=== PATIENT | male | born 1950 | race Caucasian/White ===

== ENCOUNTER 2017-04-15 08:27 | Inpatient (IN) | payer OTHER, MEDICARE ==
[~2017-04-15] VITALS: Ht 172.7 cm; Wt 140.2 kg
[2017-04-15 08:15] VITALS: O2SAT 99
[2017-04-15] MEDS ORDERED: ceFAZolin 2 GM PREMIX 50 ML ONE (08:39)
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
[2017-04-15 08:56] LABS: BASOPHIL # 0.1 TH/MM3 (0-0.2); BASOPHIL % 0.5 % (0.0-2.0); EOSINOPHIL # 0.2 TH/MM3 (0-0.4); EOSINOPHIL % 1.4 % (0.0-4.0); HEMATOCRIT 47.9 % (39.0-51.0); HEMO FLAGS DIFF FINAL; LYMPH % 26.2 % (9.0-44.0); LYMPHOCYTE # 3.6 TH/MM3 (1.0-4.8); MEAN CELL VOLUME 97.3 FL (80.0-100.0); MEAN CORPUSCULAR HEMOGLOBIN 32.4 PG (27.0-34.0); MEAN CORPUSCULAR HGB CONC 33.2 % (32.0-36.0); MONO % 6.2 % (0.0-8.0); NEUT % 65.7 % (16.0-70.0); PLATELET COUNT 208 TH/MM3 (150-450); RED BLOOD COUNT 4.92 MIL/MM3 (4.50-5.90); RED CELL DISTRIBUTION WIDTH 13.8 % (11.6-17.2); WHITE BLOOD COUNT 13.6 TH/MM3 (4.0-11.0)
[2017-04-15 09:01] LABS: I-STAT POTASSIUM 4.9 MMOL/L (3.5-4.9)
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
[2017-04-15 09:06] LABS: INTERNATIONAL NORMALIZED RATIO 1.1 RATIO; PROTHROMBIN TIME - PATIENT 12.3 SEC (9.8-11.6)
[2017-04-15 09:08] LABS: APTT (PATIENT) 39.7 SEC (24.3-30.1)
[2017-04-15] MEDS ORDERED: IOHEXOL 350 MG/ML 10 ML VIAL (for RAD DIAG) IV ONE (09:08)
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
[2017-04-15] MEDS ORDERED: LIDOCAINE 2%/EPINEPHrine 1:100,000 50ML MDV ONE (09:29)
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
[2017-04-15] MEDS ORDERED: ONDANSETRON HCL 4 MG/2 ML VIAL IV PRN (10:15)
[2017-04-15] MEDS ORDERED: MISCELLANEOUS NURSING INFORMATION XX SCH (10:15)
[2017-04-15] MEDS ORDERED: CHLORHEXIDINE GLUCONATE 2 % 1 PACK (2 CLOTHS) TOP PRN (10:15)
[2017-04-15] MEDS ORDERED: ENALAPRILAT 1.25 MG/ML VIAL IV PRN (10:15)
[2017-04-15] MEDS ORDERED: MAGNESIUM HYDROXIDE SUSP 30 ML CUP PO PRN (10:15)
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
[2017-04-15] MEDS ORDERED: LACTATED RINGER'S 1000 ML INJ 1,000 ML IV ONE (10:30)
[2017-04-15 11:54] VITALS: O2SAT 92
[2017-04-15 11:55] VITALS: BP 111/58; PULSE 91; RESP 23; TEMP 98; O2SAT 92
[2017-04-15] MEDS: DOCUSATE SODIUM 100 MG CAP PO SCH ×2 (12:01→21:06)
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
[2017-04-15 13:00] VITALS: BP 102/56; PULSE 99; RESP 20; TEMP 97.3; O2SAT 97
[2017-04-15] MEDS ORDERED: MAGN400S PO (15:06)
[2017-04-15] MEDS ORDERED: DOCU1CAP39 PO (15:06)
[2017-04-15] MEDS ORDERED: DEXTROSE 50% IN WATER 50 ML VIAL(D50) IV PUSH PRN (15:15)
[2017-04-15] MEDS ORDERED: GLUCAGON 1 MG/ML VIAL OTHER PRN (15:15)
[2017-04-15] MEDS: METHOCARBAMOL 500 MG TAB PO SCH ×2 (15:56→21:06)
[2017-04-15 16:00] VITALS: BP 122/69; PULSE 84; RESP 18; TEMP 98.6; O2SAT 94
[2017-04-15] MEDS ORDERED: LIDOCAINE HCL 2% 20 ML VIAL OTHER ONE (16:00)
[2017-04-15] MEDS: INSULIN NovoLIN REGULAR SUPPLEMENTAL SCALE SQ SCH ×2 (16:00→21:00)
[2017-04-15] MEDS ORDERED: LIDOCAINE HCL 2% 50 ML VIAL OTHER ONE (16:00)
[2017-04-15] MEDS: ACETAMINOPHEN 1000 MG/100 ML VIAL IV SCH ×2 (16:43→21:06)
--- NOTE | 2017-04-15 17:03 | HHI.PR ---
Immediate Post Op Note Procedure Date: Apr 15, 2017 Pre Op Diagnosis: complex right ear laceration 4 cm scalp injury Post Op Diagnosis: ana Surgeon: Eugene Leonardo Pecan Cleaner(s): pt's nurse rubén Procedure: closure of complex right ear stellate laceration (behind the ear) debridement/dressing of wound scalp Complications: none Specimen(s) removed: none Estimated blood loss: minimal Anesthesia: Local (2% lidocaine approx 6cc) Drains: None Patient Condition: Good Date/Time of Procedure: SEE SURGICAL CARE RECORD Eugene Leonardo DMD Apr 15, 2017 17:03
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
[2017-04-15] MEDS ORDERED: METF1000 PO (18:27)
[2017-04-15] MEDS: ceFAZolin 1,000 MG/NS 100 ML IV SCH ×2 (19:57)
[2017-04-15 20:30] VITALS: BP 104/72; PULSE 99; RESP 18; TEMP 97.4; O2SAT 95
[2017-04-16 00:35] VITALS: BP 105/56; PULSE 94; RESP 18; TEMP 98; O2SAT 95
[2017-04-16] MEDS: CHLORHEXIDINE GLUCONATE 2 % 1 PACK (2 CLOTHS) TOP SCH (04:00)
[2017-04-16 04:05] VITALS: BP 102/61; PULSE 92; RESP 18; TEMP 97.6; O2SAT 94
[2017-04-16] MEDS: ceFAZolin 1,000 MG/NS 100 ML IV SCH ×2 (04:11)
[2017-04-16 05:04] LABS: AUTOMATED NEUTROPHIL # 6.1 TH/MM3 (1.8-7.7); BASOPHIL % 0.3 % (0.0-2.0); EOSINOPHIL # 0.1 TH/MM3 (0-0.4); EOSINOPHIL % 1.2 % (0.0-4.0); HEMATOCRIT 39.3 % (39.0-51.0); HEMO FLAGS DIFF FINAL; LYMPH % 27.5 % (9.0-44.0); LYMPHOCYTE # 2.9 TH/MM3 (1.0-4.8); MEAN CELL VOLUME 97.7 FL (80.0-100.0); MEAN CORPUSCULAR HEMOGLOBIN 32.1 PG (27.0-34.0); MEAN CORPUSCULAR HGB CONC 32.9 % (32.0-36.0); PLATELET COUNT 170 TH/MM3 (150-450); RED BLOOD COUNT 4.02 MIL/MM3 (4.50-5.90); RED CELL DISTRIBUTION WIDTH 13.7 % (11.6-17.2); WHITE BLOOD COUNT 10.4 TH/MM3 (4.0-11.0)
[2017-04-16 05:23] LABS: POTASSIUM 4.2 MEQ/L (3.5-5.1)
[2017-04-16] MEDS: METHOCARBAMOL 500 MG TAB PO SCH ×3 (05:44→21:18)
[2017-04-16] MEDS: ACETAMINOPHEN 1000 MG/100 ML VIAL IV SCH ×3 (05:45→21:19)
[2017-04-16] MEDS: INSULIN NovoLIN REGULAR SUPPLEMENTAL SCALE SQ SCH ×4 (06:56→21:00)
[2017-04-16 08:00] VITALS: BP 124/76; PULSE 88; RESP 18; TEMP 97.6; O2SAT 93
[2017-04-16] MEDS: DOCUSATE SODIUM 100 MG CAP PO SCH ×2 (08:17→20:18)
[2017-04-16] MEDS ORDERED: metFORMIN HCL 500 MG TAB PO SCH (09:00)
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
--- NOTE | 2017-04-16 10:55 | HHI.PR ---
Subjective Remarks pod 1 s/p repair of right ear laceration, no complaints, tolerating po well sitting oob ,comfortable Objective Vital Signs Date Time Temp Pulse Resp B/P Pulse Ox O2 Delivery O2 Flow Rate FiO2 04/16/17 08:00 97.6 88 18 124/76 93 04/16/17 04:05 97.6 92 18 102/61 94 04/16/17 00:35 98.0 94 18 105/56 95 04/15/17 20:30 97.4 99 18 104/72 95 04/15/17 16:00 98.6 84 18 122/69 94 04/15/17 13:00 97.3 99 20 102/56 97 04/15/17 11:55 98.0 91 23 111/58 92 Room Air 04/15/17 11:54 92 04/15/17 11:54 92 Room Air I/O 04/15/17 04/15/17 04/15/17 04/16/17 04/16/17 04/16/17 07:00 15:00 23:00 07:00 15:00 23:00 Intake Total 240 ml 489 ml 365 ml Output Total 475 ml 200 ml Balance -235 ml 289 ml 365 ml Intake Oral 240 ml 240 ml 120 ml IV Total 249 ml 245 ml Output Urine Total 475 ml 200 ml # Voids 1 # Bowel Movements 1 0 0 Result Diagram: 04/16/17 0435 04/16/17 0435 Objective Remarks dressing in place,slight loose, clean dry right ear wound margins well approximated sutures intact, hemostatic, no hematoma noted tissue pink/ well perfused Assessment and Plan Assessment and Plan pod 1 s/p repair of complex right ear laceration reinforced dressing plan to remove dressing tomorrow continue supportive care Eugene Leonardo DMD Apr 16, 2017 10:55
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
[2017-04-16 12:20] VITALS: BP 117/78; PULSE 96; RESP 16; TEMP 97.7; O2SAT 94
[2017-04-16] MEDS: ENOXAPARIN SODIUM 40 MG/0.4 ML SYRINGE SQ SCH (12:24)
[2017-04-16] MEDS ORDERED: CARV6.25 PO (13:26)
[2017-04-16] MEDS ORDERED: LOSA25TA PO (13:26)
[2017-04-16] MEDS ORDERED: LIPI40TA PO (13:26)
[2017-04-16] MEDS ORDERED: PRAD150C PO (13:26)
[2017-04-16 16:21] VITALS: BP 126/73; PULSE 86; RESP 18; TEMP 96.8; O2SAT 92
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
[2017-04-16 20:05] VITALS: BP 119/76; PULSE 85; RESP 18; TEMP 97.1; O2SAT 94
[2017-04-16] MEDS: FAMOTIDINE 20 MG TAB PO SCH (20:18)
[2017-04-16] MEDS: SODIUM CHLORIDE 0.9% FLUSH 10 ML FLUSH IV FLUSH PRN (20:22)
[2017-04-17 00:03] VITALS: BP 99/73; PULSE 84; RESP 18; TEMP 98.1; O2SAT 95
[2017-04-17] MEDS: CHLORHEXIDINE GLUCONATE 2 % 1 PACK (2 CLOTHS) TOP SCH ×2 (04:00→22:52)
[2017-04-17] MEDS: METHOCARBAMOL 500 MG TAB PO SCH ×3 (06:20→21:01)
[2017-04-17] MEDS: INSULIN NovoLIN REGULAR SUPPLEMENTAL SCALE SQ SCH ×4 (06:24→21:00)
[2017-04-17 07:30] VITALS: BP 119/77; PULSE 80; RESP 20; TEMP 96.6; O2SAT 94
--- NOTE | 2017-04-17 08:01 | HHI.FF ---
Face to Face Verification Diagnosis: (1) Clavicle fracture (2) Scalp laceration Physical Therapy Order: Evaluate and Treat, Improve ambulation, Strength and gait training Home Health Nursing Order: Medical education Signs/symptoms of disease process Medication education-adverse effect Wound care and dressing changes (Cleanse daily with NS, and apply Xeroform in a single layer, and cover with an ABD pad) Nursing assessment with vital signs I have seen patient Luke Vargas on 04/17/17. My clinical findings support the need for the requested home health care services because: Ltd mobility - disease progression Deconditioned w/ increased weakness Limited ability to care for self High risk of falls I certify that my clinical findings support that this patient is homebound because: Post-op weakness Unsteady gait/balance Unsafe to leave home unassisted Unable to use public transportation Marilee Patrick Apr 17, 2017 08:01
[2017-04-17] MEDS: metFORMIN HCL 500 MG TAB PO SCH ×2 (09:58→18:00)
[2017-04-17] MEDS: DOCUSATE SODIUM 100 MG CAP PO SCH ×2 (10:02→21:01)
[2017-04-17 11:35] VITALS: BP 111/74; PULSE 97; RESP 16; TEMP 96.8; O2SAT 92
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
[2017-04-17] MEDS: ENOXAPARIN SODIUM 40 MG/0.4 ML SYRINGE SQ SCH (13:23)
[2017-04-17 16:00] VITALS: BP 136/69; PULSE 84; RESP 20; TEMP 97.5; O2SAT 93
--- NOTE | 2017-04-17 18:21 | PD.WCN.NOT ---
Wound Consult Description: Top of head, head laceration Communicated with: STONE Woodard [place] and Marilee Omer [facility] trauma Recommendation: Please cleanse wound to Anterior aspect of scalp with normal saline and apply Xeroform gauze in single layer over wound bed and Cover with ABD pad. Secure with rolled gauze and tape, stockenette or clean head cap. Change dressing daily or PRN if saturated or dislodged. Additional Information: Patient seen on for evaluation of laceration to Anterior top of the head.Patient is noted with open wound to anterior scalp that is open to air. Wound noted with scant sero-sanguinous drainage and no odor. PEriwound is noted with matted hair, dried sanguinous drainage,2 sutures and 14 branden. No periwound erythema or edema is assessed. Wound measures ~5 cm x ~5cm x~0.1 cm. Tissue in wound bed appears to be 100% red non granulation tissue.Cleansed wound with normal saline.Applied single layer Xeroform gauze dressing over wound bed, branden and sutures. Covered with ABD pad. Attempted to secure dressing with rolled gauze, Patient did not want it on for now. Kezia Chapa [facility] Apr 17, 2017 18:20
[2017-04-17 19:26] VITALS: BP 122/71; PULSE 74; RESP 17; TEMP 97.1; O2SAT 93
--- NOTE | 2017-04-17 20:01 | HHI.PR ---
Subjective Remarks pod 2 s/p repair of right ear laceration, and wound debridement/closure scalp no complaints, tolerating po well comfortable, no complaints Objective Vital Signs Date Time Temp Pulse Resp B/P Pulse Ox O2 Delivery O2 Flow Rate FiO2 04/17/17 19:38 Room Air 04/17/17 16:00 97.5 84 20 136/69 93 04/17/17 11:35 96.8 97 16 111/74 92 04/17/17 07:30 96.6 80 20 119/77 94 04/17/17 00:03 98.1 84 18 99/73 95 04/16/17 20:05 97.1 85 18 119/76 94 I/O 04/16/17 04/16/17 04/16/17 04/17/17 04/17/17 04/17/17 07:00 15:00 23:00 07:00 15:00 23:00 Intake Total 365 ml 480 ml 340 ml 340 ml 480 ml Output Total 900 ml 250 ml 250 ml Balance 365 ml -420 ml 90 ml 90 ml 480 ml Intake Oral 120 ml 480 ml 240 ml 240 ml 480 ml IV Total 245 ml 100 ml 100 ml Output Urine Total 900 ml 250 ml 250 ml # Voids 1 3 # Bowel Movements 0 0 0 0 Result Diagram: 04/16/1743404/16/17434 Objective Remarks head/scalp dressing was removed , scalp clean dry wound margins well approximated, sutures, branden intact, tissues well perfused , no hematoma right ear wound margins well approximated sutures intact, hemostatic, no hematoma noted tissue pink/ well perfused no signs of infection bleeding pus edema Assessment and Plan Assessment and Plan pod 2 s/p repair of complex right ear laceration, ok to d/c to home from OMS standpoint f/up [address] leonardo, can shower, but avoid shampoo on scalp wear cap when in sunlight continue supportive care/wound care as per wound management Eugene Leonardo DMD Apr 17, 2017 20:00
[2017-04-17] MEDS: SODIUM CHLORIDE 0.9% FLUSH 10 ML FLUSH IV FLUSH PRN (21:01)
[2017-04-17] MEDS: FAMOTIDINE 20 MG TAB PO SCH (21:01)
[2017-04-17 23:27] VITALS: BP 117/84; PULSE 87; RESP 18; TEMP 97.7; O2SAT 99
[2017-04-18 04:16] VITALS: BP 151/88; PULSE 88; RESP 18; TEMP 97.4; O2SAT 93
[2017-04-18] MEDS: METHOCARBAMOL 500 MG TAB PO SCH ×2 (05:52→12:47)
[2017-04-18] MEDS: INSULIN NovoLIN REGULAR SUPPLEMENTAL SCALE SQ SCH ×2 (05:52→11:00)
[2017-04-18 08:00] VITALS: BP 139/83; PULSE 83; RESP 17; TEMP 96.8; O2SAT 94
[2017-04-18] MEDS ORDERED: CARVEDILOL 6.25 MG TAB PO SCH (09:00)
[2017-04-18] MEDS ORDERED: LOSARTAN 25 MG TAB PO SCH (09:00)
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
[2017-04-18] MEDS: metFORMIN HCL 500 MG TAB PO SCH (10:00)
[2017-04-18] MEDS: DOCUSATE SODIUM 100 MG CAP PO SCH (10:00)
[2017-04-18] MEDS: ENOXAPARIN SODIUM 40 MG/0.4 ML SYRINGE SQ SCH (12:47)
[2017-04-18] MEDS ORDERED: ATORVASTATIN 40 MG TAB PO SCH (21:00)
== END 2017-04-18 13:45 | disposition home health service (06) | DRG 134 ==
LOC: NEPI 08:27 → EDBD 09:38 → NEDA 09:38 → N06B 12:46
PROVIDERS: ADMIT Surgery; ATTEND Surgery
PROC: [UNRECOGNIZED PROCEDURE] (principal; 2017-04-15)
PROC: 0HD0XZZ Extraction of Scalp Skin, External Approach (ICD-10-PCS; 2017-04-15)
PROC: 0HQ0XZZ Repair Scalp Skin, External Approach (ICD-10-PCS; 2017-04-15)
DX: S08.121A Partial traumatic amputation of right ear, initial encounter (principal); I48.91 Unspecified atrial fibrillation; I10 Essential (primary) hypertension; S01.01XA Laceration without foreign body of scalp, initial encounter; S42.022A Displaced fracture of shaft of left clavicle, initial encounter for closed fracture; F17.210 Nicotine dependence, cigarettes, uncomplicated; E11.9 Type 2 diabetes mellitus without complications; V43.52XA Car driver injured in collision with other type car in traffic accident, initial encounter; Y92.410 Unspecified street and highway as the place of occurrence of the external cause; Y99.8 Other external cause status; Z79.84 Long term (current) use of oral hypoglycemic drugs
CPT/HCPCS: 70450; 71010; 71260; 72125; 72170; 73020; 73200; 74177; 80048; 82435; 82565; 82947; 82948; 84132; 84295; 84520; 85025; 85610; 85730; 86850; 86900; 86901; 90471; 94150; 96374; 99291; G0390; J0131; J0690; J1650; J3010; J7120; Q9967